=== PATIENT | female | born 1950 | race Two or more races ===

== ENCOUNTER 2018-08-08 12:02 | Outpatient (CLI) | payer OTHER ==
[~2018-08-08 12:02] MED LIST: PTE NO RECUERDA
== END 2018-08-08 12:06 | disposition home or self-care (01) ==
LOC: RAD 12:02
DX: M54.5 Low back pain (principal); M25.552 Pain in left hip; M25.551 Pain in right hip

== ENCOUNTER 2022-10-13 09:04 | Outpatient (CLI) | payer OTHER | END 2022-10-13 09:13 | disposition home or self-care (01) | LOC: RAD 09:04 | PROVIDERS: ATTEND Internal Medicine Pulmonary Disease | DX: R05.3 Chronic cough (principal); J45.30 Mild persistent asthma, uncomplicated; Z87.891 Personal history of nicotine dependence; K21.9 Gastro-esophageal reflux disease without esophagitis ==